=== PATIENT | female | born 2000 | race Hispanic/Latino ===

== ENCOUNTER 2020-08-03 23:35 | Emergency (ER) | payer OTHER | END 2020-08-04 00:51 | LOC: EDH 23:35 | DX: S00.05XA Superficial foreign body of scalp, initial encounter (principal); S00.01XA Abrasion of scalp, initial encounter; S40.811A Abrasion of right upper arm, initial encounter; S90.412A Abrasion, left great toe, initial encounter; V49.49XA Driver injured in collision with other motor vehicles in traffic accident, initial encounter; Y93.89 Activity, other specified; Y92.89 Other specified places as the place of occurrence of the external cause; Y99.8 Other external cause status ==